=== PATIENT | male | born 1980 | race Caucasian/White ===

== ENCOUNTER 2016-12-18 08:50 | Emergency (ER) | payer SELFPAY ==
[~2016-12-18] VITALS: Ht 180.3 cm; Wt 98.7 kg
[2016-12-18 08:53] VITALS: TEMP 36.5; Ht 180.3 cm; Wt 98.7 kg
[2016-12-18] MEDS ORDERED: BUPR1SUB23 SL (09:12)
[2016-12-18] MEDS ORDERED: XYLOCAINE 1%/SOD BICARB 20 ML VIAL INFIL STA (09:20)
--- NOTE | 2016-12-18 09:39 | EMERGENCY ROOM VISIT NOTE ---
ED Visit Note First contact with patient: 08:57 History of Present Illness: This patient is a 36 year old male who presents to the Emergency Department via private vehicle for evaluation of their left fifth digit laceration. Patient sustained the laceration while operating a utility knife earlier today. They report a minimal amount of bleeding initially. They deny any numbness or tingling into the distal extremity. They report no decreased range of motion of the affected digit. Patient rates his current discomfort as a 1/10. Patient's Tetanus status is currently up-to-date. Medications: As noted below. Allergies: No known drug allergies. PMH: No pertinent past medical history. SHx: Patient is currently employed. He lives at home with . ROS: All pertinent positive and negative review of systems are appropriately documented in the History of Present Illness. Physical Exam: VITAL SIGNS - Vital signs and nursing notes were reviewed. Afebrile, 139/93 blood pressure, non-tachycardic and saturating well on room air 96%. GENERAL -36-year-old male appearing his stated age who is in no acute distress. Communicates well with provider and answers questions appropriately. SKIN - There is a 2 cm long laceration noted medial aspect of the left fifth digit. The edges gape apart with traction. No foreign bodies appreciated. Upon further examination there are no deep structures including vessel, tendon, or bony structures appreciated. There is no active bleeding noted. This is crescent-shaped in nature. MUSCULOSKELETAL - Laceration as described above. +5/5 strength appreciated of the affected digit. Full range of motion of the affected digit. NEUROLOGIC - Spinothalamic tract was found to be intact with ability to discriminate sharp versus dull sensation. No sensory defects of the dorsal column were appreciated utilizing light touch for evaluation. VASCULAR - Capillary refill was brisk. ED Course: Patient was seen and evaluated by myself and the physician food and beverage assistant student. Risks and benefits of performing primary wound closure versus no repair were discussed with the patient who verbalizes understanding. Patient verbalizes consent to allow the student to close the wound under my supervision. Verbal consent was obtained prior to performing the procedure. 6 cc of 1% buffered lidocaine was used to perform a digital block of the left fifth digit. The wound was cleansed and prepped in the typical sterile fashion utilizing normal saline and Betadine. The wound was sterilely draped. Once proper anesthetization was established, the wound was further examined and demonstrated a C-shaped laceration. The wound was copiously irrigated with normal saline and Betadine. The wound was closed using 7 simple, 5-0 nylon sutures with the wound edges being well approximated. Patient tolerated the procedure well. No complications were met. The wound was cleansed and dressed with a Bacitracin dressing. A metal splint was applied to the finger for comfort. Patient educated on worrisome symptoms for return visit to the Emergency Department. Patient discharged to home in good condition. Current/Historical Medications Scheduled Buprenorphine Hcl-Naloxone Hcl (Suboxone 8-2 Mg), 4 MG SL DAILY Allergies Coded Allergies: No Known Allergies (Unverified , 12/18/16) Uncoded Allergies: NKA (Allergy, Unknown, 10/07/03) Vital Signs Date Time Temp Pulse Resp B/P Pulse Ox O2 Delivery O2 Flow Rate FiO2 12/18/16 10:43 75 18 139/93 96 12/18/16 08:53 36.5 75 18 139/93 96 Room Air Departure Information Impression Primary Impression: Finger laceration Dispostion Home / Self-Care Condition GOOD Referrals Aaron Robles M.D. (PCP) Patient Instructions [facility] Additional Instructions Discharge Instructions: You have received 7 sutures on your Left pinky. These sutures are NOT dissolvable and WILL need to be removed by a health care provider in 12 days. You can return to the Emergency Department or contact your Primary Care Provider to have the sutures removed. Please wear the splint for comfort until the sutures are removed. Proper wound care is essential for adequate wound healing and infection prevention. You can shower and clean the wound with soap and water. Do not scour over the wound, pat dry with a towel. Do not submerse the wound (i.e. bathe or dish wash) until the sutures have been removed. You can use an antibiotic ointment with a dressing over the wound for the next 3-4 days. After this time you may leave the wound dry and open to the air. If crust develops over the wound you can use a Q-tip to apply a 1:1 peroxide:water solution to clean the wound. Look for signs of infection of the wound including: increased pain, swelling, foul discharge, streaking, or increased temperature. If any of these are noticed you should return to the Emergency Department for further assessment and treatment. As with any laceration you may have received nerve damage to the surrounding tissues. This damage may or may not be permanent. You should keep the area covered with sunscreen for the first 6 months to 1 year when at risk for exposure to help minimize scarring. You can also use scar reducing creams or Vitamin E oil to help minimize scarring. For pain control, you can use the following [id number] medicines (if >12 yo): - Regular strength (325mg/tab) Tylenol (acetaminophen) 2 tabs every 4-6 hours as needed. Do not exceed 12 tablets in a 24 hour period. Avoid taking more than 4 grams (4000 mg) of Tylenol per day. This includes any other sources of acetaminophen you may take on a regular basis. - Regular strength (200 mg/tab) Advil (ibuprofen) 1-2 tabs every 4-6 hours as needed. Do not exceed a dose of 3200 mg per day. Return to the emergency department if your symptoms worsen despite treatment course outlined above. Problem Qualifiers Primary Impression: Finger laceration Encounter type: initial encounter Qualified Codes: S61.219A - Laceration without foreign body of unspecified finger without damage to nail, initial encounter
[2016-12-18 10:43] VITALS: BP 139/93; PULSE 75; O2SAT 96
== END 2016-12-18 10:44 | disposition home or self-care (01) ==
LOC: C.EDB 08:52
DX: S61.217A Laceration without foreign body of left little finger without damage to nail, initial encounter (principal); W26.0XXA Contact with knife, initial encounter; Y93.89 Activity, other specified; Y92.89 Other specified places as the place of occurrence of the external cause; Y99.8 Other external cause status